=== PATIENT | male | born 1950 | race Caucasian/White ===

== ENCOUNTER 2016-07-18 09:03 | Outpatient (CLI) | payer BC ==
[2016-07-18 09:52] LABS: Cardiac Risk 3.7 (Less than 4.5)
== END 2016-07-18 09:04 | disposition home or self-care (01) ==
LOC: NAVSJIPCSP 09:03 → NAV LAB 09:04
PROVIDERS: ATTEND Internal Medicine
DX: E78.5 Hyperlipidemia, unspecified (principal)
CPT/HCPCS: 80061

== ENCOUNTER 2016-09-21 16:36 | Outpatient (CLI) | payer BC ==
[2016-09-21 17:23] LABS: Anion Gap 14 mmol/L (10-20); BUN (Urea Nitrogen) 18 mg/dL (8.4-25.7); Calc. Creatinine Clearance 0 mL/min (70-130); Calcium 9.1 mg/dL (7.8-10.44); Carbon Dioxide 22 mmol/L (23-31); Chloride 104 mmol/L (98-107); Estimated GFR-MDRD 89; Glucose 82 mg/dL (80-115); Potassium 4.2 mmol/L (3.5-5.1); Sodium 136 mmol/L (136-145)
== END 2016-09-21 16:37 | disposition home or self-care (01) ==
LOC: NAV LAB 16:36
PROVIDERS: ATTEND Specialist
DX: I10 Essential (primary) hypertension (principal)
CPT/HCPCS: 36415; 80048

== ENCOUNTER 2016-11-16 07:15 | Outpatient (CLI) | payer BC ==
[2016-11-16 08:17] LABS: Cardiac Risk 4.4 (Less than 4.5)
== END 2016-11-16 07:16 | disposition home or self-care (01) ==
LOC: NAVSJIPCSP 07:15 → NAV LAB 07:16
PROVIDERS: ATTEND Internal Medicine
DX: E78.5 Hyperlipidemia, unspecified (principal)
CPT/HCPCS: 80061

== ENCOUNTER 2016-12-05 17:49 | Outpatient (CLI) | payer BC ==
--- NOTE | 2016-12-05 18:27 | RAD ---
RIGHT KNEE FOUR VIEWS: History: Right knee pain, worsening for three weeks. FINDINGS: There is narrowing of the medial compartment joint space where tricompartmental osteophytosis is als o most pronounced. Small amount of fluid distends the suprapatellar bursa. A lobulated predominately oval 1.3 cm calcification projects over the anterior medial aspect of the lateral joint compartment . IMPRESSION: 1. Intracapsular loose body within the lateral compartment joint space. 2. Osteoarthritis with a small joint effusion. POS: [facility]
== END 2016-12-05 17:50 | disposition home or self-care (01) ==
LOC: NAV RAD 17:49
PROVIDERS: ATTEND Internal Medicine
DX: M25.561 Pain in right knee (principal); M17.11 Unilateral primary osteoarthritis, right knee; M25.461 Effusion, right knee

== ENCOUNTER 2018-01-09 14:18 | Outpatient (CLI) | payer BC ==
[2018-01-09 15:53] LABS: Cardiac Risk 3.9 (Less than 4.5)
== END 2018-01-09 14:19 | disposition home or self-care (01) ==
LOC: NAVSJIPCSP 14:18
PROVIDERS: ATTEND Internal Medicine
DX: I11.9 Hypertensive heart disease without heart failure (principal); E78.5 Hyperlipidemia, unspecified; Z79.899 Other long term (current) drug therapy
CPT/HCPCS: 80061

== ENCOUNTER 2018-05-07 11:22 | Outpatient (CLI) | payer BC ==
--- NOTE | 2018-05-07 13:05 | RAD ---
LEFT SHOULDER THREE VIEWS: Date: 05-07-18 Provided Clinical History: Left shoulder pain status post injury. FINDINGS: Sequellae of prior healed distal clavicular fracture with conspicuous heterotopic ossification. No ev idence for an acute fracture. The glenohumeral relationship appears normal. The subacromial space merrick ears narrowed, which may reflect rotator cuff insufficiency. The visualized left lung field appears clear. IMPRESSION: 1. Remote left distal clavicular fracture with prominent adjacent heterotopic ossification. 2. Narrowing of the subacromial space, which may reflect rotator cuff insufficiency. POS: [facility]
== END 2018-05-07 11:23 | disposition home or self-care (01) ==
LOC: NAV RAD 11:22
PROVIDERS: ATTEND Internal Medicine
DX: M25.512 Pain in left shoulder (principal); M25.812 Other specified joint disorders, left shoulder; Z87.81 Personal history of (healed) traumatic fracture

== ENCOUNTER 2020-12-14 11:07 | Outpatient (CLI) | payer BC | END 2020-12-14 11:08 | disposition home or self-care (01) | LOC: NAV CT 11:07 | PROVIDERS: ATTEND Internal Medicine | DX: R31.9 Hematuria, unspecified (principal); N28.81 Hypertrophy of kidney; Z90.81 Acquired absence of spleen | CPT/HCPCS: 74176 ==

== ENCOUNTER 2020-12-18 08:54 | Outpatient (CLI) | payer BC ==
[2020-12-18] MEDS ORDERED: Iopamidol 370 76% 100 ML VIAL ONE (09:00)
== END 2020-12-18 08:55 | disposition home or self-care (01) ==
LOC: NAV CT 08:54
PROVIDERS: ATTEND Internal Medicine
DX: N28.81 Hypertrophy of kidney (principal); N28.89 Other specified disorders of kidney and ureter
CPT/HCPCS: 74177; Q9967